=== PATIENT | female | born 1990 | race American Indian/Alaskan Native ===

== ENCOUNTER 2019-07-30 13:26 | Emergency (ER) | payer SELFPAY ==
[2019-07-30] MEDS: SODIUM CHLORIDE 0.9% 1000 ML 1,000 ML IV ONE ×2 (15:13→15:56)
--- NOTE | 2019-07-30 15:16 | Emergency Department Report ---
HPI - General Chief Complaint: Headache Time Seen by Provider: 07/30/19 15:09 - HPI HPI: 29 yo female comes to ER with headache. Vomit x 1 in triage. No injury or fall. Hx HTN not taking her meds. generalized headache. No hx migraines. Neuro intact. 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 Did not see her PCP. pain aching in nature. lights do not hurt eyes. NOT worst headache of her life Pain 05/06 ED Past Medical Hx - Past Medical History Previous Medical History?: Yes Hx Hypertension: Yes - Surgical History Past Surgical History?: No - Family History Family history: no significant - Social History Smoking Status: Never Smoker Substance Use Type: Alcohol - Medications Home Medications: Home Medications Medication Instructions Recorded Confirmed Last Taken Type amLODIPine [Norvasc] 10 mg PO DAILY #30 tab 07/30/19 Unknown Rx ED Review of Systems ROS: Stated complaint: HPB Other details as noted in HPI Comment: All other systems reviewed and negative Physical Exam - Physical Exam Vital Signs: Vital Signs 07/30/19 13:37 Temperature 97.9 F Pulse Rate 96 H Respiratory 18 Rate Blood Pressure 197/130 [Right] O2 Sat by Pulse 100 Oximetry ED Course Vital Signs 07/30/19 13:37 Temperature 97.9 F Pulse Rate 96 H Respiratory 18 Rate Blood Pressure 197/130 [Right] O2 Sat by Pulse 100 Oximetry ED Medical Decision Making - Lab Data Result diagrams: 07/30/19 15:29 07/30/19 15:29 - Radiology Data Radiology results: report reviewed, image reviewed - Medical Decision Making Labs 07/30/19 07/30/19 07/30/19 15:26 15:29 15:29 WBC 7.3 RBC 5.08 H Hgb 13.8 Hct 41.0 MCV 81 MCH 27 L MCHC 34 RDW 13.4 Plt Count 305 Sodium 139 Potassium 3.8 Chloride 99.9 Carbon Dioxide 26 Anion Gap 17 BUN 8 Creatinine 0.7 Estimated GFR > 60 BUN/Creatinine Ratio 11 Glucose 90 Calcium 9.4 Total Bilirubin 0.20 AST 23 ALT 20 Alkaline Phosphatase 102 Total Protein 8.5 H Albumin 4.6 Albumin/Globulin Ratio 1.2 HCG, Qual Urine Color Yellow Urine Turbidity Slightly-cloudy Urine pH 7.0 Ur Specific [place] 1.012 Urine Protein <15 mg/dl Urine Glucose (UA) Neg Urine Ketones Neg Urine Blood Neg Urine Nitrite Neg Urine Bilirubin Neg Urine Urobilinogen < 2.0 Ur Leukocyte Esterase Lg Urine WBC (Auto) 5.0 Urine RBC (Auto) 2.0 U Epithel Cells (Auto) 14.0 H Amorphous Crystals Few Urine Mucus Few 07/30/19 15:29 WBC RBC Hgb Hct MCV MCH MCHC RDW Plt Count Sodium Potassium Chloride Carbon Dioxide Anion Gap BUN Creatinine Estimated GFR BUN/Creatinine Ratio Glucose Calcium Total Bilirubin AST ALT Alkaline Phosphatase Total Protein Albumin Albumin/Globulin Ratio HCG, Qual Negative Urine Color Urine Turbidity Urine pH Ur Specific [place] Urine Protein Urine Glucose (UA) Urine Ketones Urine Blood Urine Nitrite Urine Bilirubin Urine Urobilinogen Ur Leukocyte Esterase Urine WBC (Auto) Urine RBC (Auto) U Epithel Cells (Auto) Amorphous Crystals Urine Mucus Vital Signs 07/30/19 13:37 Temperature 97.9 F Pulse Rate 96 H Respiratory 18 Rate Blood Pressure 197/130 [Right] O2 Sat by Pulse [address] noted no focal neuro def ambulatory in ER taking po non ill non toxic no cp or sob medicated in ER BP dec - 190/90 per provider on dc headache decreased on dc dc home with dc plan of care and pcp follow up - Differential Diagnosis headache ro SAH Critical care attestation.: If time is entered above; I have spent that time in minutes in the direct care of this critically ill patient, excluding procedure time. ED Disposition Clinical Impression: HTN (hypertension), Nonadherence to medication, Headache Disposition: DC-01 TO HOME OR SELFCARE Is pt being admited?: No Does the pt Need Aspirin: No Condition: Stable Instructions: Hypertension (ED) Additional Instructions: LOW SALT DIET TAKE MED DAILY INSTRUCTED FOLLOW UP WITH PCP RYLEE YOU WILL LIKELY NEED BP MEDS THE REST OF YOUR LIFE HYDRATE WELL WITH WATER Prescriptions: amLODIPine [Norvasc] 10 mg PO DAILY #30 tab Referrals: PRIMARY CAREMD [Primary Care Provider] - 3-5 Days ESTEPHANIA ZAVALA MD [Staff Physician] - 3-5 Days Forms: Work/School Release Form(ED) Time of Disposition: 18:08 Physical Exam - Physical Exam Vital Signs: Vital Signs 07/30/19 07/30/19 13:37 18:48 Temperature 97.9 F Pulse Rate 96 H 87 Respiratory 18 Rate Blood Pressure 168/101 Blood Pressure 197/130 [Right] O2 Sat by Pulse 100 Oximetry ED Physical Exam - General Limitations: No Limitations General appearance: alert, in no apparent distress - Head Head exam: Present: atraumatic, normocephalic - Eye Eye exam: Present: normal appearance - ENT ENT exam: Present: mucous membranes moist - Neck Neck exam: Present: normal inspection - Respiratory Respiratory exam: Present: normal lung sounds bilaterally. Absent: respiratory distress - Cardiovascular Cardiovascular Exam: Present: regular rate, normal rhythm. Absent: systolic murmur, diastolic murmur, rubs, gallop - GI/Abdominal GI/Abdominal exam: Present: soft, normal bowel sounds - Extremities Exam Extremities exam: Present: normal inspection - Back Exam Back exam: Present: normal inspection - Neurological Exam Neurological exam: Present: alert, oriented X3 - Psychiatric Psychiatric exam: Present: normal affect, normal mood - Skin Skin exam: Present: warm, dry, intact, normal color. Absent: rash
[2019-07-30] MEDS ORDERED: ONDANSETRON 4 MG/2 ML INJ IV ONE (15:28)
[2019-07-30 15:42] LABS: Hemoglobin 13.8 gm/dl (10.1-14.3); Mean Corpuscular HGB Conc 34 % (30-34); Mean Corpuscular Volume 81 fl (79-97); Platelet Count 305 K/mm3 (140-440); Red Blood Count 5.08 M/mm3 (3.65-5.03); Red Cell Distribution Width 13.4 % (13.2-15.2)
[2019-07-30 16:03] LABS: Amorphous Crystals,Urine Few; Bilirubin,Urine NEG (Negative); Blood,Urine NEG (Negative); Color,Urine Yellow (Yellow); Mucus,Urine FEW /HPF; Protein,Urine <15 mg/dL mg/dL (Negative); Urobilinogen,Urine < 2.0 mg/dL (<2.0)
[2019-07-30 17:17] LABS: Alanine Aminotransferase 20 units/L (7-56); Albumin 4.6 g/dL (3.9-5); BUN/Creatinine Ratio 11; Blood Urea Nitrogen 8 mg/dL (7-17); Calcium 9.4 mg/dL (8.4-10.2); Hemolysis Index 18
--- NOTE | 2019-07-30 17:53 | Cat Scan Report ---
CT head/brain wo con INDICATION: HEADACHE WITH VOMITING AND HTN. TECHNIQUE: Routine CT head without contrast. All CT scans at this location are performed using CT dos e reduction for ALARA by means of automated exposure control. COMPARISON: None. FINDINGS: BRAIN / INTRACRANIAL CONTENTS: No acute hemorrhage, mass effect, midline shift, or hydrocephalus. No appreciable acute large territorial or lacunar infarct. Ventricular and cisternal size appears all fo r age. There is slight expansion of the sella with flattening of the superior margin of the pituitary gland consistent with a partially empty sella appearance. ORBITS: No significant abnormality of visualized orbits. SINUSES / MASTOIDS: No significant abnormality of visualized sinuses and mastoid air cells. ADDITIONAL FINDINGS: None. IMPRESSION: 1. No acute intracranial abnormality. 2. Partially empty sella appearance which can be associated with idiopathic intracranial hypertension , which is a potential etiology of headache. Signer Name: Meir Otero MD Signed: 07/30/2019 5:49 PM Workstation Name: [id number]
[2019-07-30] MEDS ORDERED: hydrALAZINE 20 MG/1 ML INJ IV ONE (18:09)
[2019-07-30] MEDS ORDERED: KETOROLAC 60 MG/2 ML INJ IM ONE (18:11)
[2019-07-30 18:49] VITALS: BP 168/101
== END 2019-07-30 19:30 | disposition home or self-care (01) ==
LOC: ED 13:26
DX: I10 Essential (primary) hypertension (principal)
CPT/HCPCS: 36415; 70450; 80053; 81001; 84703; 85027; 96361; 96372; 96374; 96375; 99284; J0360; J1885; J2405; J7030